=== PATIENT | female | born 1985 | race American Indian/Alaskan Native ===

== ENCOUNTER 2018-07-04 10:17 | Emergency (ER) | payer MEDICAID, OTHER ==
[2018-07-04] MEDS ORDERED: SOLU-Medrol IV ONE (12:27)
[2018-07-04] MEDS ORDERED: PROVENTIL IH ONE (12:27)
[2018-07-04] MEDS ORDERED: ATROVENT IH ONE (12:27)
[2018-07-04] MEDS ORDERED: NACL 0.9% 1000 ML 1,000 ML IV ONE (12:27)
--- NOTE | 2018-07-04 12:30 | Emergency Department Report ---
Blank Doc - Documentation Documentation: Patient is a 32-year-old [place] female past medical history asthma is complaining of 3 days of productive cough and low-grade subjective fever and sore throat. Patient states that she's been using her nebs treatment with no improvement. On focused physical exam patient is diffuse wheeze. Patient removed to treat O for nebulizer treatment chest x-ray will be reassessed.
--- NOTE | 2018-07-04 13:08 | XRay Report ---
Chest 2 views: History: Cough. Findings: Normal cardiomediastinal silhouette. Trachea is midline. No consolidation, pneumothorax or pleural effusion. Impression: No acute cardiopulmonary findings
[2018-07-04] MEDS ORDERED: MOTRIN PO ONE (13:27)
[2018-07-04] MEDS ORDERED: MOTRIN ONE (13:30)
--- NOTE | 2018-07-04 13:34 | Emergency Department Report ---
Minor Respiratory - HPI Chief Complaint: Upper Respiratory Infection Stated Complaint: COUGHING,SOB Time Seen by Provider: 07/04/18 12:22 Duration: 3 Days Pain Location: Throat, Chest (chest tightness), Other (headache) Severity: severe (8/10 achy and chest tightness.) Minor Respiratory: Yes Rhinorrhea, Yes Sore Throat, Yes Able to Tolerate Fluids , Yes Cough, Yes Chest Pain (chest tightness), Yes Shortness of Breath, Yes Fever, No Ear Pain, No Sick Contacts, No Hemoptysis Other History: Patient is a 32-year-old [place] female past medical history asthma is complaining of 3 days of productive cough and low-grade subjective fever and sore throat. Patient states that she's been using her nebs treatment with no improvement. Patient complaining of headache and chest tightness is feeling good spirits into her back at 8/10. No medication taken for pain. No alleviating or exacerbating factors. No nausea vomiting or fevers or chills. ED Review of Systems ROS: Stated complaint: COUGHING,SOB Other details as noted in HPI Constitutional: chills, fever Eyes: denies: eye pain, eye discharge, vision change ENT: throat pain, congestion. denies: ear pain Respiratory: cough, shortness of breath, SOB with exertion, SOB at rest, wheezing. denies: stridor Cardiovascular: chest pain. denies: palpitations, edema, syncope Gastrointestinal: denies: abdominal pain, nausea, vomiting, diarrhea Genitourinary: denies: urgency, dysuria, discharge Musculoskeletal: denies: back pain, joint swelling, arthralgia Skin: denies: rash, lesions Neurological: headache. denies: weakness, numbness, paresthesias, abnormal gait , vertigo ED Past Medical Hx - Past Medical History Previous Medical History?: Yes Hx Hypertension: No Hx Heart Attack/AMI: No Hx GERD: Yes Hx Liver Disease: No Hx Renal Disease: No Hx Headaches / Migraines: Yes (migraines) Hx Seizures: Yes (febrile seizure as toddler, migraines) Hx Asthma: Yes (pollen and dust triggers, uses daily inhaler) Additional medical history: Hyperthyroidism - Surgical History Past Surgical History?: No - Family History Family history: hypertension - Social History Smoking Status: Current Every Day Smoker Substance Use Type: None - Medications Home Medications: Home Medications Medication Instructions Recorded Confirmed Last Taken Type ALBUTEROL Inhaler (OR & NICU) 2 puff IH QID PRN 02/24/16 02/29/16 2 Months Ago History [Proair] ~12/31/15 Albuterol *Only Ed* [Proventil 2.5 mg IH Q4H PRN 02/24/16 02/29/16 02/29/16 07: 00 History 0.5% NEBS] Azelastine 0.1% (Nf) [Astelin (Nf)] 2 spray NS DAILY 02/24/16 02/29/16 02/28/16 History Cetirizine HCl [ZyrTEC] 10 mg PO DAILY 02/24/16 02/29/16 02/28/16 History Fluticasone [Flonase] 1 spray NS QDAY 02/24/16 02/29/16 02/28/16 History Fluticasone/Salmeterol [Advair 2 spray IH DAILY 02/24/16 02/29/16 02/29/16 07: 00 History 250-50 Diskus] HYDROcodone/APAP 5-325 [[place] 1 each PO Q4HR PRN #15 tablet 02/29/16 Unknown Rx 5-325 mg TAB] ALBUTEROL Inhaler (OR & NICU) 2 puff IH Q6H PRN #1 inhalation 07/04/18 Unknown Rx [ProAir HFA Inhaler] ALBUTEROL NEB's [Proventil 0.083% 3 ml IH Q6H PRN #1 box 07/04/18 Unknown Rx NEBS] Azithromycin [Zithromax Z-DEWAYNE] 250 mg PO DAILY 5 Days #1 pkg 07/04/18 Unknown Rx Cetirizine HCl [ZyrTEC] 10 mg PO QDAY 21 Days #21 07/04/18 Unknown Rx tab.rapdis Fluticasone [Flonase] 1 spray NS QDAY 14 Days #1 bottle 07/04/18 Unknown Rx Ibuprofen [Motrin] 600 mg PO Q8H PRN #12 tablet 07/04/18 Unknown Rx diazePAM TAB [Valium] 2 mg PO BID PRN #6 tablet 07/04/18 Unknown Rx Minor Respiratory Exam - Exam General: Vital signs noted. No distress. Alert and acting appropriately. This is a 32-year-old female well-nourished well-developed appears to be in minor distress from wheezing and coughing but shortness of breath. HEENT: Yes Moist Mucous Membranes (uvula midline and oral airways patent), Yes Rhinorrhea (congested with clear drainage), No Pharyngeal Erythema, No Pharyngeal Exudates, No Conjuctival Injection, No Frontal Tenderness, No Maxillary Tenderness Ear: Neither TM Bulge (congested), Neither TM Erythema, Neither EAC Pain, Neither EAC Discharge Neck: Yes Supple (full range of motion.), No Adenopathy Lungs: Yes Wheezes (throughout lung prescott), Yes Cough (congestive cough), Yes Use of Accessory Muscles (minor), No Ronchi, No Stridor, No Labored Respirations , No Retractions, No Other Abnormal Lung Sounds Heart: Yes Regular (tachycardic at 116), No Murmur Abdomen: Yes Normal Bowel Sounds, No Tenderness, No Peritoneal Signs Skin: No Rash, No Edema Neurologic: Alert and oriented, no deficits. Alert and oriented 3, normal gait Musculoskeletal: Unremarkable. No cce. + 2 pulses in all extremities, no neurovascular compromise ED Course Vital Signs 07/04/18 07/04/18 11:30 13:30 Temperature 99 F Pulse Rate 85 Respiratory 20 20 Rate Blood Pressure 166/93 O2 Sat by Pulse 100 Oximetry Vital Signs 07/04/18 07/04/18 07/04/18 11:30 13:30 17:31 Temperature 99 F 98.1 F Pulse Rate 85 83 Pulse Rate [ Posterior Bilateral] Respiratory 20 20 22 Rate Respiratory Rate [Posterior Bilateral] Blood Pressure 166/93 Blood Pressure 120/96 [Right] O2 Sat by Pulse 100 100 Oximetry 07/04/18 17:35 Temperature Pulse Rate Pulse Rate [ 83 Posterior Bilateral] Respiratory Rate Respiratory 22 Rate [Posterior Bilateral] Blood Pressure Blood Pressure [Right] O2 Sat by Pulse Oximetry - Reevaluation(s) Reevaluation #1: 07/04/18 14:24 Patient received 10 mg and Atrovent 1 mg nebulizer treatment. Her wheezing has subsided but she is still having shortness of breath and chest tightness radiating to her back. Patient to have CBC and BMP and CT scan of the chest with IV contrast to rule out PE. I discussed with this patient and she agrees. She received Motrin 800 mg for pain which helped her pain Reevaluation #2: 07/04/18 15:[address] scan angio of the chest. She is stable. CBC is stable and BMP shows potassium of 3.4 which is mildly decreased sodium is 4.6 which is mildly elevated Reevaluation #3: 07/04/18 17:40 Xopenex 0.25 mg nebulizer started. Patient is started on magnesium sulfate 2 g IV. Reevaluation #4: 07/04/18 18:36 Patient says she is feeling better after magnesium sulfate. Her oxygenation remained 100% and no use of accessory muscles present. ED Medical Decision Making - Lab Data Result diagrams: 07/04/18 14:31 07/04/18 14:31 Lab Results 07/04/18 07/04/18 07/04/18 Range/Units 14:31 14:31 14:31 WBC 7.0 (4.5-11.0) K/mm3 RBC 4.26 (3.65-5.03) M/mm3 Hgb 12.8 (10.1-14.3) gm/dl Hct 37.8 (30.3-42.9) % MCV 89 (79-97) fl MCH 30 (28-32) pg MCHC 34 (30-34) % RDW 14.2 (13.2-15.2) % Plt Count 183 (140-440) K/mm3 Lymph % (Auto) 22.4 (13.4-35.0) % [place] % (Auto) 2.4 (0.0-7.3) % Eos % (Auto) 2.2 (0.0-4.3) % Baso % (Auto) 0.4 (0.0-1.8) % Lymph # 1.6 (1.2-5.4) K/mm3 [place] # 0.2 (0.0-0.8) K/mm3 Eos # 0.2 (0.0-0.4) K/mm3 Baso # 0.0 (0.0-0.1) K/mm3 Seg Neutrophils % 72.6 H (40.0-70.0) % Seg Neutrophils # 5.1 (1.8-7.7) K/mm3 Sodium 146 H (137-145) mmol/L Potassium 3.4 L (3.6-5.0) mmol/L Chloride 106.1 (98-107) mmol/L Carbon Dioxide 20 L (22-30) mmol/L Anion Gap 23 mmol/L BUN 5 L (7-17) mg/dL Creatinine 0.6 L (0.7-1.2) mg/dL Estimated GFR > 60 ml/min BUN/Creatinine Ratio 8 % Glucose 94 (65-100) mg/dL Calcium 8.9 (8.4-10.2) mg/dL HCG, Qual Negative (Negative) - Radiology Data Radiology results: report reviewed Chest x-ray 2 views dictated by radiologist report reviewed by myself and shows no acute cardiopulmonary processes. CTA chest negative for PE this is dictated by radiologist report reviewed by myself. She report below. Patient: REFUGIO MADSEN MR#: [id number] : 1985 Acct:[id number] Age/Sex: 32 / F ADM Date: 07/04/18 Loc: ED Attending Dr: Ordering Physician: MARTIN BRADSHAW MD Date of Service: 07/04/18 Procedure(s): XR chest routine 2V Accession Number(s): [id number] cc: MARTIN BRADSHAW MD Fluoro Time In Minutes: Chest 2 views: History: Cough. Findings: Normal cardiomediastinal silhouette. Trachea is midline. No consolidation, pneumothorax or pleural effusion. Impression: No acute cardiopulmonary findings Transcribed By: PTP Dictated By: SAMMIE PETERSON MD Electronically Authenticated By: SAMMIE PETERSON MD Signed Date/Time: 07/04/18 124 DD/ 1248 TD/TT: 07/04/18 1249 Patient: REFUGIO MADSEN MR#: [id number] : 1985 Acct:[id number] Age/Sex: 32 / F ADM Date: 07/04/18 Loc: ED Attending Dr: Ordering Physician: ADDIE CORNELIUS Date of Service: 07/04/18 Procedure(s): CT angio chest Accession Number(s): [id number] cc: ADDIE CORNELIUS FINAL REPORT EXAM: CT ANGIO CHEST HISTORY: shortness of breath and chest pain TECHNIQUE: CT examination of the chest with IV contrast CT angiographic 2D and thick slab 3D image post-processing PRIORS: None. 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 Normal cardiac size without pericardial effusion. Intact normal caliber thoracic aorta. Normal-appearing esophagus. No evidence of hilar mass or mediastinal adenopathy. Nonspecific small hypodense nodules in the lower left thyroid lobe. Largest 8 mm. The visualized pulmonary arteries are diffusely patent bilaterally. There is no filling defect to suggest PE. No acute fracture. Nonspecific smoothly marginated nodule is noted in the posterior aspect of the right anterior 4th rib. Approximate dimension is 18 mm. The border with the adjacent rib is smoothly marginated and sclerotic. It also creates a smooth interface with the adjacent lung pleura. The lesion is of homogeneous soft tissue density. No pneumothorax, pleural effusion, or focal pulmonary consolidation. No definite lung mass or nodule. IMPRESSION: 18 mm nonspecific anterior right 4th rib lesion is of homogeneous soft tissue density and appears exophytic with slight mass effect on the adjacent pleura. 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 She was screened by Dr. Dawson orders. Patient was seen and examined by myself. Her physical exam is normal except she has widespread wheeze in her lung prescott, increased work of breathing and use of accessory muscles, nasal congestion with runny nose and bilateral TM congested. She has congested cough. Patient was given albuterol 10 mg nebulized with 1 mg of Atrovent over an hour and she was given Solu-Medrol 125 mg IV along with 1 L normal saline IV fluid which did not relieve her chest tightness or shortness of breath. She was given Xopenex 1.25 mg and Valium due to anxiety and it seems to have helped a little but she still complained that she is having shortness of breath and chest pain. After speaking with Dr. JARRED Bradshaw of the chest to rule out pulmonary embolism. This was done and radiology dictated reports and showed no pulmonary embolism but she has some abnormality at her 4th rib that suggest lesion. She also had some abnormality in her thyroid gland but patient has Graves' disease and says she knows about that.. Her CBC and BMP stable except for some minor abnormalities. Chest x-ray was also done and dictated by radiologist and showed no acute cardiopulmonary findings. I discussed CT scan report and chest x-ray with patient and discuss thyroid abnormality but she heard he knows about and also abnormality at 4 rib and I gave her a printout of her radiology report and told her that she needs to follow up with a methods and procedures analyst and also her primary care physician. Patient voiced understanding. She felt better after Xopenex and Valium and vital signs are stable she is afebrile and pain is better. Patient discharged home with prescription for all. Her abdomen inhaler nebulizer, Flonase and Zyrtec, Valium , Z-Dewayne and steroids. She was undescended discharge instruction in need to follow-up - Differential Diagnosis PNA, bronchitis, asthma, PE, URI with cough and congestion Critical care attestation.: If time is entered above; I have spent that time in minutes in the direct care of this critically ill patient, excluding procedure time. ED Disposition Clinical Impression: Bronchitis, URI with cough and congestion, Rib lesion, Anxiety Asthma attack Qualifiers: Asthma severity: moderate Asthma persistence: persistent Qualified Code(s): J45.41 - Moderate persistent asthma with (acute) exacerbation Disposition: TO HOME OR SELFCARE Is pt being admited?: No Does the pt Need Aspirin: No Condition: Stable Instructions: Asthma (ED), Upper Respiratory Infection (ED), Acute Bronchitis ( ED), Anxiety (ED) Additional Instructions: Please follow-up with your primary care doctor in 4 days and if his symptoms worsen return to the hospital. Take medication as prescribed Please use her albuterol nebulizer every 6 hours 2 days and then when necessary Increase her fluid intake Take Motrin for headache and fever as prescribed. Prescriptions: ALBUTEROL Inhaler (OR & NICU) [ProAir HFA Inhaler] 2 puff IH Q6H PRN #1 inhalation PRN Reason: Shortness Of Breath ALBUTEROL NEB's [Proventil 0.083% NEBS] 3 ml IH Q6H PRN #1 box PRN Reason: cough/wheeze Azithromycin [Zithromax Z-DEWAYNE] 250 mg PO DAILY 5 Days #1 pkg Cetirizine HCl [ZyrTEC] 10 mg PO QDAY 21 Days #21 tab.rapdis diazePAM TAB [Valium] 2 mg PO BID PRN #6 tablet PRN Reason: Anxiety Fluticasone [Flonase] 1 spray NS QDAY 14 Days #1 bottle Ibuprofen [Motrin] 600 mg PO Q8H PRN #12 tablet PRN Reason: Pain Referrals: PRIMARY CAREMD [Primary Care Provider] - 07/08/18 FANG BOO MD [Staff Physician] - 07/08/18 [facility] [Outside] - 07/08/18 Forms: Accompanied Note, Work/School Release Form(ED)
[2018-07-04 14:55] LABS: Basophils % (Auto) 0.4 % (0.0-1.8); Eosinophils # (Auto) 0.2 K/mm3 (0.0-0.4); Eosinophils % (Auto) 2.2 % (0.0-4.3); Hematocrit 37.8 % (30.3-42.9); Hemoglobin 12.8 gm/dl (10.1-14.3); Lymphocytes # (Auto) 1.6 K/mm3 (1.2-5.4); Lymphocytes % (Auto) 22.4 % (13.4-35.0); Mean Corpuscular HGB Conc 34 % (30-34); Mean Corpuscular Hemoglobin 30 pg (28-32); Mean Corpuscular Volume 89 fl (79-97); Monocytes # (Auto) 0.2 K/mm3 (0.0-0.8); Monocytes % (Auto) 2.4 % (0.0-7.3); Platelet Count 183 K/mm3 (140-440); Red Blood Count 4.26 M/mm3 (3.65-5.03); Red Cell Distribution Width 14.2 % (13.2-15.2)
[2018-07-04 15:27] LABS: BUN/Creatinine Ratio 8; Blood Urea Nitrogen 5 mg/dL (7-17); Calcium 8.9 mg/dL (8.4-10.2); Hemolysis Index 7
[2018-07-04] MEDS ORDERED: XOPENEX IH ONE (17:29)
--- NOTE | 2018-07-04 17:29 | Cat Scan Report ---
FINAL REPORT EXAM: CT ANGIO CHEST HISTORY: shortness of breath and chest pain TECHNIQUE: CT examination of the chest with IV contrast CT angiographic 2D and thick slab 3D image post-processing PRIORS: None. 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 Normal cardiac size without pericardial effusion. Intact normal caliber thoracic aorta. Normal-appearing esophagus. No evidence of hilar mass or mediastinal adenopathy. Nonspecific small hypodense nodules in the lower left thyroid lobe. Largest 8 mm. The visualized pulmonary arteries are diffusely patent bilaterally. There is no filling defect to suggest PE. No acute fracture. Nonspecific smoothly marginated nodule is noted in the posterior aspect of the right anterior 4th rib. Approximate dimension is 18 mm. The border with the adjacent rib is smoothly marginated and sclerotic. It also creates a smooth interface with the adjacent lung pleura. The lesion is of homogeneous soft tissue density. No pneumothorax, pleural effusion, or focal pulmonary consolidation. No definite lung mass or nodule. IMPRESSION: 18 mm nonspecific anterior right 4th rib lesion is of homogeneous soft tissue density and appears exophytic with slight mass effect on the adjacent pleura. 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
[2018-07-04] MEDS ORDERED: MAGNESIUM SULFATE 2GM/50ML 2 GM/50 ML BAG IV ONE (17:30)
[2018-07-04 17:32] VITALS: BP 120/96
== END 2018-07-04 19:09 | disposition home or self-care (01) ==
LOC: ED 10:17
DX: J45.41 Moderate persistent asthma with (acute) exacerbation (principal); F41.9 Anxiety disorder, unspecified
CPT/HCPCS: 36415; 71046; 71275; 80048; 84703; 85025; 94640; 96361; 96365; 96375; 99285; J2930; J3475; J7030; Q9967